=== PATIENT | male | born 1980 | race African-American/Black ===

== ENCOUNTER 2025-02-12 09:34 | Inpatient (IN) | payer OTHER ==
[~2025-02-12] VITALS: Ht 167.6 cm; Wt 100.0 kg
[2025-02-12 11:42] LABS: EOSINOPHILS % (AUTO) 2.2 % (1.0-6.0); HEMATOCRIT 41.1 % (41-53); HEMOGLOBIN 13.6 g/dL (13.5-17.5); LYMPHOCYTES # (AUTO) 1.6 K/uL (1.0-4.8); LYMPHOCYTES % (AUTO) 25.3 % (22.0-44.0); MEAN CORPUSCULAR HEMOGLOBIN 26.7 pg (26.0-34.0); MEAN CORPUSCULAR HGB CONC 33.2 G/dL (31.0-37.0); MEAN CORPUSCULAR VOLUME 81 fL (80-100); MONOCYTES # (AUTO) 0.6 K/uL (0.1-1.0); MONOCYTES % (AUTO) 9.2 % (2.0-9.0); NEUTROPHILS % (AUTO) 62.3 % (40.0-70.0); PLATELET COUNT (AUTO) 219 K/uL (150-450); RED BLOOD CELL COUNT(AUTO) 5.11 MIL/uL (4.50-5.90); RED CELL DISTRIBUTION WIDTH 13.3 % (11.5-14.5); WHITE BLOOD COUNT (AUTO) 6.4 K/uL (4.5-11.0)
[2025-02-12 11:52] LABS: ANION GAP 3 mmol/L (8-16); CALCIUM, TOTAL 10.9 mg/dL (8.8-10.5); CARBON DIOXIDE 32 mmol/L (22-29); CHLORIDE 103 mmol/L (98-107); CREATININE 1.14 mg/dL (0.60-1.30); GLOMERULAR FILTR. RATE CALC > 60 mL/min (>60); GLUCOSE,RANDOM 86 mg/dL (70-110); POTASSIUM 4.3 mmol/L (3.5-5.1); SODIUM SERUM 138 mmol/L (136-145); UREA NITROGEN, BLOOD 8 mg/dL (7-18)
[2025-02-12] MEDS: SULFACETAMIDE SODIUM 10% 15 ML OPHTHALMIC SOLUTION OS ONE (12:12)
[2025-02-12] MEDS: KETOROLAC TROMETHAMINE 0.4% 5 ML OPHTHALMIC SOLUTION OS ONE (12:13)
[2025-02-12] MEDS: DiphenhydrAMINE HCL 25 MG CAPSULE PO ONE (12:13)
[2025-02-12] MEDS: CefTRIAXone 1 GM/DEXTROSE 50 ML IV ONE (12:13)
[2025-02-12] MEDS ORDERED: ACETAMINOPHEN 325 MG TABLET PO PRN (13:30)
[2025-02-12] MEDS ORDERED: MAGNESIUM HYDROXIDE SUSPENSION 30 ML UDCUP PO PRN (13:30)
[2025-02-12 15:09] LABS: APPEARANCE,URINE HAZY (CLEAR); BILIRUBIN,URINE NEGATIVE (NEGATIVE); COLOR,URINE LIGHT YELLOW (YELLOW); GLUCOSE, URINE (UA) NEGATIVE (NEGATIVE); KETONES,URINE NEGATIVE (NEGATIVE); LEUKOCYTE ESTERASE ,URINE NEGATIVE (NEGATIVE); NITRATE,URINE NEGATIVE (NEGATIVE); OCCULT BLOOD,URINE NEGATIVE (NEGATIVE); PH,URINE 7.5 (5.0-8.0); PROTEIN,URINE NEGATIVE (NEGATIVE); SPECIFIC GRAVITIY, URINE 1.012 (1.003-1.030); UROBILINOGEN,URINE <=1.0 mg/dL (<=1.0)
[2025-02-12] MEDS: CIPROFLOXACIN HCL 0.3% 2.5 ML OPHTHALMIC SOLUTION OS SCH (17:45)
[2025-02-12 18:29] VITALS: BP 147/96; PULSE 52; RESP 18; TEMP 98.2; O2SAT 97
[2025-02-12 20:06] VITALS: BP 132/81; PULSE 53; RESP 20; TEMP 98.2; O2SAT 98
[2025-02-13 05:44] VITALS: BP 139/91; PULSE 53; RESP 18; TEMP 98.2; O2SAT 98
[2025-02-13 07:52] VITALS: BP 136/86; PULSE 56; RESP 18; TEMP 97.5; O2SAT 99
[2025-02-13] MEDS: FAMOTIDINE 20 MG TABLET PO SCH (08:08)
[2025-02-13] MEDS ORDERED: SODIUM CHLORIDE 0.9% 500 ML IV ONE (11:06)
[2025-02-13] MEDS: CefTRIAXone 1 GM/DEXTROSE 50 ML IV SCH (11:15)
[2025-02-13 20:28] VITALS: BP 145/84; PULSE 56; RESP 18; TEMP 98.1; O2SAT 99
[2025-02-14 05:40] VITALS: BP 142/92; PULSE 52; RESP 18; TEMP 97.9; O2SAT 98
[2025-02-14 08:54] VITALS: BP 142/77; PULSE 60; RESP 18; TEMP 98.1; O2SAT 99
[2025-02-14] MEDS ORDERED: CIPR2.5D17 OS (10:47)
[2025-02-14] MEDS ORDERED: MAGN-169 PO (10:53)
[2025-02-14] MEDS ORDERED: ACET-2247 PO (10:53)
[2025-02-14] MEDS ORDERED: FAMO20 PO (10:53)
== END 2025-02-14 14:00 | DRG 125 ==
LOC: EMS 09:38 → EDH 13:25 → 6S 18:21
PROVIDERS: ADMIT Internal Medicine; ATTEND Internal Medicine
DX: H01.004 Unspecified blepharitis left upper eyelid (principal); E66.9 Obesity, unspecified; Z68.35 Body mass index [BMI] 35.0-35.9, adult
CPT/HCPCS: 80048; 81003; 85025; 96365; 99285; J0696; J7040